=== PATIENT | male | born 2000 | race Hispanic/Latino ===

== ENCOUNTER 2022-03-31 09:34 | Inpatient (IN) | payer BC, MEDICAID ==
[2022-03-31] MEDS ORDERED: Morphine 4 MG/ML VIAL ONE (10:07)
[2022-03-31] MEDS ORDERED: Crotalidae Polyvalent Antivenin 1 GM VIAL ONE ×2 (10:08→10:09)
[2022-03-31 10:26] LABS: #Eosinphils 0.1 10x3/uL (0.0-0.5); #Monocytes 0.8 10x3/uL (0.0-1.1); #Neutrophils 6.2 10x3/uL (1.5-8.4); %Basophils 0.2 % (0.0-2.0); %Lymphocytes 20.7 % (18.0-47.0); %Monocytes 9.3 % (0.0-10.0); %Neutrophils 68.5 % (40.0-75.0); Hemoglobin 15.7 g/dL (13.5-17.5); Mean Corpuscular HGB CONC 33.9 g/dL (32.0-36.0); Mean Corpuscular Hemoglobin 30.1 pg (27.0-33.0); Mean Corpuscular Volume 88.7 fl (81.2-95.1); Platelet Count 249 10x3/uL (150-450); RBC Distribution Width 13.2 % (11.5-14.5); Red Blood Cell (RBC) Count 5.22 10x6/uL (4.32-5.72); White Blood Cell (WBC) Count 9.1 10x3/uL (3.5-10.5)
[2022-03-31 10:34] LABS: ALT (SGPT) 19 U/L (8-55); AST (SGOT) 20 U/L (10-45); Albumin 4.3 g/dL (3.5-5.0); Alkaline Phosphatase 70 U/L (50-130); Anion Gap 15 mmol/L (10-20); BUN (Urea Nitrogen) 17 mg/dL (8.4-21.0); Bilirubin, Total 0.4 mg/dL (0.2-1.2); Calc. Creatinine Clearance 0 mL/min (70-130); Calcium 9.4 mg/dL (7.8-10.44); Carbon Dioxide 23 mmol/L (22-29); Chloride 107 mmol/L (98-107); Globulin 2.4 g/dL (2.4-3.5); Glucose 91 mg/dL (70-105); INR-International Normal Ratio 1.1; PTT 23.1 sec (22.0-33.0); Potassium 4.4 mmol/L (3.5-5.1); Protein, Total 6.7 g/dL (6.0-8.3); Prothrombin Time 12.1 sec (9.5-12.1); Sodium 141 mmol/L (136-145)
[2022-03-31] MEDS ORDERED: Acetaminophen 325 MG TAB PO PRN (11:46)
[2022-03-31] MEDS ORDERED: Ondansetron PF 4 MG/2 ML Vial IVP PRN (11:46)
[2022-03-31] MEDS ORDERED: diphenhydrAMINE 25 MG CAP PO PRN (11:49)
[2022-03-31 14:17] VITALS: BMI 28.0
[2022-03-31] MEDS: Morphine 2 MG/ML VIAL SLOW IVP PRN ×3 (15:12→23:38)
[2022-03-31] MEDS: Crotalidae Polyvlnt Antivenin 2 GM in Sodium Chloride 0.9% 250 ML 250 ML IVPB SCH (19:46)
[2022-04-01 00:49] LABS: SARS-CoV-2 PCR by NAA Not Detected (NotDetected)
[2022-04-01] MEDS: Crotalidae Polyvlnt Antivenin 2 GM in Sodium Chloride 0.9% 250 ML 250 ML IVPB SCH ×2 (01:03→06:13)
[2022-04-01 05:00] LABS: #Eosinphils 0.2 10x3/uL (0.0-0.5); #Monocytes 0.6 10x3/uL (0.0-1.1); #Neutrophils 4.1 10x3/uL (1.5-8.4); %Basophils 0.3 % (0.0-2.0); %Eosinophils 2.7 % (0.0-6.0); %Lymphocytes 29.4 % (18.0-47.0); %Neutrophils 58.3 % (40.0-75.0); Hemoglobin 14.4 g/dL (13.5-17.5); Mean Corpuscular HGB CONC 33.6 g/dL (32.0-36.0); Mean Corpuscular Hemoglobin 30.2 pg (27.0-33.0); Mean Corpuscular Volume 89.7 fl (81.2-95.1); Platelet Count 237 10x3/uL (150-450); Red Blood Cell (RBC) Count 4.77 10x6/uL (4.32-5.72)
[2022-04-01 05:06] LABS: Anion Gap 12 mmol/L (10-20); BUN (Urea Nitrogen) 12 mg/dL (8.4-21.0); Calc. Creatinine Clearance 142 mL/min (70-130); Calcium 9.2 mg/dL (7.8-10.44); Carbon Dioxide 25 mmol/L (22-29); Chloride 105 mmol/L (98-107); Glucose 85 mg/dL (70-105); Sodium 138 mmol/L (136-145)
[2022-04-01 16:06] VITALS: BP 119/58; TEMP 98
== END 2022-04-01 16:54 | disposition home or self-care (01) | DRG 918 ==
LOC: CSHERS 09:34 → CSHTELE 14:10 → OBSVTOIN 14:10
PROVIDERS: ADMIT Internal Medicine; ATTEND Hospitalist
DX: T63.061A Toxic effect of venom of other North and South American snake, accidental (unintentional), initial encounter (principal); Z20.822 Contact with and (suspected) exposure to COVID-19
CPT/HCPCS: 36415; 80048; 80053; 85025; 85384; 85610; 85730; 86850; 86900; 86901; 96365; 96366; 96375; J0840; J2270; J7050; U0003; U0005